=== PATIENT | male | born 1990 | race Caucasian/White ===

== ENCOUNTER 2019-06-08 07:54 | Emergency (ER) | payer BC ==
[~2019-06-08] VITALS: Ht 175.3 cm; Wt 80.7 kg
[2019-06-08 07:54] VITALS: BP_SYST 137
[2019-06-08 09:12] LABS: BARBITURATE, URINE NEGATIVE (NEG <=200)
[2019-06-08 09:13] LABS: BENZODIAZEPINE, URINE POSITIVE (NEG <=150); CANNABINOID, URINE POSITIVE (NEG <=50); COCAINE, URINE NEGATIVE (NEG <=150); METHAMPHETAMINES SCREEN,URINE POSITIVE (NEG <=500); OPIATE, URINE NEGATIVE (NEG <=100); PHENCYCLIDINE SCREEN,URINE NEGATIVE (NEG <=25); UR TRICYCLIC ANTIDEPRESSANTS NEGATIVE (NEG <=300); URINE AMPHETAMINE POSITIVE (NEG <=500); URINE METHADONE NEGATIVE (NEG <=200); URINE OXYCODONE SCREEN NEGATIVE (NEG <=100); URINE PROPOXYPHENE SCREEN NEGATIVE (NEG <=300)
[2019-06-08] MEDS ORDERED: LORazepam 1 MG TABLET PO ONE (09:45)
[2019-06-08 10:13] VITALS: BP_SYST 137
[2019-06-09 23:06] LABS: CHLAMYDIA TRACHOMATIS NAA Negative (Negative); NEISSERIA GONORRHOEAE NAA Negative (Negative)
== END 2019-06-08 10:13 | disposition home or self-care (01) ==
LOC: SED 07:54
DX: F19.10 Other psychoactive substance abuse, uncomplicated (principal); F12.90 Cannabis use, unspecified, uncomplicated; F31.9 Bipolar disorder, unspecified
CPT/HCPCS: 80307; 87491; 87591; 99283